=== PATIENT | female | born 1985 | race Caucasian/White ===

== ENCOUNTER 2017-07-20 12:05 | Emergency (ER) | payer MEDICAID ==
[~2017-07-20] VITALS: Ht 162.6 cm; Wt 54.4 kg
--- NOTE | 2017-07-20 12:49 | NUR ---
Pt remains calm and cooperative, pt eating lunch with NAD noted. armed security guard remians at pt's door for direct 1:1 observation.
[2017-07-20 12:51] LABS: BASOPHILS # (AUTO) 0.1 K/uL (0.0-8.0); BASOPHILS % (AUTO) 1.3 % (0.0-2.0); EOSINOPHILS # (AUTO) 0.3 K/uL (0.0-0.7); EOSINOPHILS % (AUTO) 2.8 % (0.0-7.0); HEMOGLOBIN 13.4 g/dL (10.9-14.3); LYMPHOCYTES # (AUTO) 2.9 K/uL (20.0-40.0); LYMPHOCYTES % (AUTO) 30.8 % (20.5-51.5); MEAN CORPUSCULAR HEMOGLOBIN 29.7 uug (24.7-32.8); MEAN CORPUSCULAR HGB CONC 34 g/dL (32.3-35.6); MEAN CORPUSCULAR VOLUME 86.6 fL (75.5-95.3); MONOCYTES # (AUTO) 0.6 K/uL (2.0-10.0); MONOCYTES % (AUTO) 6.2 % (0.0-11.0); NEUTROPHILS # (AUTO) 5.6 K/uL (1.8-8.9); NEUTROPHILS % (AUTO) 58.9 % (38.5-71.5); PLATELET COUNT (AUTO) 328 K/uL (179-408); WHITE BLOOD COUNT (AUTO) 9.5 K/uL (3.8-11.8)
[2017-07-20 12:52] LABS: CARBON DIOXIDE 31 mmol/L (21-32); CHLORIDE 100 mmol/L (98-107); CREATININE 0.9 mg/dL (0.6-1.3); GLUCOSE 92 mg/dL (74-106); POTASSIUM 4.3 mmol/L (3.5-5.1); UREA NITROGEN, BLOOD 22 mg/dL (7-18)
[2017-07-20 12:56] LABS: *URINE HCG, QUAL NEGATIVE (NEGATIVE)
[2017-07-20 12:58] LABS: ALANINE AMINOTRANSFERASE 23 U/L (14-59); ALKALINE PHOSPHATASE 66 U/L (50-136); ASPARTATE AMINOTRANSFERASE 24 U/L (15-37); BILIRUBIN,DIRECT 0.2 mg/dL (0.0-0.2); BILIRUBIN,TOTAL 0.8 mg/dL (0.2-1.0); TOTAL PROTEIN, SERUM 6.9 g/dL (6.4-8.2)
[2017-07-20 12:59] LABS: ACETAMINOPHEN < 2.0 ug/mL (10-30); ETHANOL < 3 MG/DL (0-0)
[2017-07-20 13:02] LABS: *BLOOD, URINE 2+ (NEGATIVE); *CLARITY,URINE CLEAR (CLEAR); *COLOR,URINE YELLOW (YELLOW); *KETONES,URINE TRACE (NEGATIVE); *PROTEIN,URINE TRACE (NEGATIVE); *UROBILINOGEN,URINE 0.2 E.U./dl (NORMAL); LEUKOCYTE ESTERASE ,URINE NEGATIVE (NEGATIVE); NITRITE, URINE NEGATIVE (NEGATIVE); PH,URINE 5.5 (5.0-8.0); UGLUCOSE NEGATIVE (NEGATIVE)
[2017-07-20 13:11] LABS: *AMPHETAMINE, URINE POSITIVE (NEGATIVE); *BARBITURATE, URINE NEGATIVE (NEGATIVE); *CANNABINOID, URINE NEGATIVE (NEGATIVE); *COCCAINE, URINE NEGATIVE (NEGATIVE); *OPIATE, URINE POSITIVE (NEGATIVE); *PHENCYCLIDINE SCREEN,URINE POSITIVE (NEGATIVE)
[2017-07-20 13:22] LABS: THYROID STIMULATING HORMONE 0.582 mIU/mL (0.358-3.740)
--- NOTE | 2017-07-20 13:23 | NUR ---
Call placed to ИВАН Baez, for PET evaluation, ETA 60 min.
[2017-07-20 13:37] LABS: *BILIRUBIN,URIN 1+ (NEGATIVE)
[2017-07-20 13:39] LABS: BACTERIA,URINE FEW /HPF (NONE SEEN); MUCUS,URINE MODERATE /LPF (0-FEW); SQUAMOUS EPITHELIAL CELL,UR FEW /HPF (NONE SEEN)
--- NOTE | 2017-07-20 14:20 | NUR ---
Patient is resting comfortably in bed with eyes closed
--- NOTE | 2017-07-20 14:32 | NUR ---
ИВАН Baez, at bedside for evaluation.
--- NOTE | 2017-07-20 15:00 | NUR ---
Sasha informed staff that patient does not meet 5150 hold criteria. Patient is pending potential transfer to [facility], awaiting admission information. Patient was given the option to call family D/C home if she chooses.
--- NOTE | 2017-07-20 16:02 | NUR ---
Call received from Aisha at [facility]. Patient has been accepted to [facility] by Dr. PARK. Nixon contacted for transportation (trip #[id number]), ETA 1736.
--- NOTE | 2017-07-20 17:59 | NUR ---
Patient Tranfers to outside Facility Physician: Dr. Gomes Location: [facility]
== END 2017-07-20 18:11 | disposition short-term general hospital (02) ==
LOC: ER 12:08
DX: T40.1X1A Poisoning by heroin, accidental (unintentional), initial encounter (principal); R45.851 Suicidal ideations; Z59.0 Homelessness; Y92.89 Other specified places as the place of occurrence of the external cause; F19.10 Other psychoactive substance abuse, uncomplicated
CPT/HCPCS: 36415; 70030-TC; 80307; 84443; 84703; 85025; 85730; 93005; A4663; G0480; G0480-TC